=== PATIENT | male | born 1960 | race Caucasian/White ===

== ENCOUNTER 2018-08-23 13:15 | Inpatient (IN) | payer OTHER ==
[~2018-08-23] VITALS: Ht 170.2 cm; Wt 90.7 kg
[2018-09-22] MEDS ORDERED: OXYC1TAB9 PO (15:51)
== END 2018-09-22 18:50 | disposition home or self-care (01) | DRG 331 ==
LOC: EDSTATUS 13:15 → ADM 13:15 → SURH 08-27 13:15 → O/R 09-17 06:00 → SURH 09-17 11:15
PROVIDERS: ADMIT Surgery
PROC: 07TC4ZZ Resection of Pelvis Lymphatic, Percutaneous Endoscopic Approach (ICD-10-PCS; 2018-09-17)
PROC: 0DTK4ZZ Resection of Ascending Colon, Percutaneous Endoscopic Approach (ICD-10-PCS; principal; 2018-09-17 11:15)
DX: D12.2 Benign neoplasm of ascending colon (principal); R59.0 Localized enlarged lymph nodes

== ENCOUNTER 2018-09-16 06:26 | Day surgery (SDC) | payer OTHER | END 2018-09-16 12:15 | disposition home or self-care (01) | LOC: AMB-ENDOS 06:26 | DX: D12.2 Benign neoplasm of ascending colon (principal) ==

== ENCOUNTER 2019-09-03 18:53 | Emergency (ER) | payer OTHER ==
[~2019-09-03] VITALS: Ht 170.2 cm; Wt 88.5 kg
[~2019-09-03 18:53] MED LIST: OXYC1TAB9 PO
[2019-09-04] MEDS ORDERED: PROTONIX40 MG PO (02:58)
[2019-09-04] MEDS ORDERED: PEPCID40 MG PO (02:58)
== END 2019-09-04 04:02 | disposition home or self-care (01) ==
LOC: ER 18:53 → CPU-OBS 18:54 → ER 09-04 04:02
DX: R07.89 Other chest pain (principal)
CPT/HCPCS: G0378; G0379; 93005

== ENCOUNTER 2020-02-23 09:55 | Day surgery (SDC) | payer OTHER ==
[~2020-02-23 09:55] MED LIST changes: +PEPCID40 MG PO; +PROTONIX40 MG PO
== END 2020-02-23 14:45 | disposition home or self-care (01) ==
LOC: AMB-ENDOS 09:55 → ADM 13:30 → AMB-ENDOS 14:45
PROVIDERS: ATTEND Surgery
DX: D12.4 Benign neoplasm of descending colon (principal); K62.1 Rectal polyp; Z20.828 Contact with and (suspected) exposure to other viral communicable diseases